=== PATIENT | female | born 1975 | race Two or more races ===

== ENCOUNTER 2016-07-03 11:43 | Emergency (ER) | payer OTHER ==
--- NOTE | 2016-07-03 12:00 | ED.ADGEN ---
Adult General Chief Complaint Chief Complaint Abdominal pain HPI HPI Patient is a 40 year old F who presents with abdominal and pelvic pain with back pain Pt is currently and approx 12 weeks and has had no care. Pt started having pain on Sunday and gradually worse. Pain is constant dull pain 6.5/10, Radiates to lower back. Pain starts bilateral lower abdomen. +N, no vomiting, no diarrhea. Pt states is having less frequent BM but last was yesterday, hard stool no blood. This am pt started spotting when wipe and urine turns pink in toilet from bleeding. Pt not going through any pads. Pt was supposed to have first OB appointment today but told to come to ER with symptoms Review of Systems Review of Systems Constitutional: Denies fever or chills Eyes: Denies change in visual acuity, redness, or eye pain HENT: Denies nasal congestion or sore throat Respiratory: Denies cough or shortness of breath Cardiovascular: No additional information not addressed in HPI GI: abdominal pain, nausea, no vomiting, bloody stools or diarrhea : Denies dysuria or hematuria Integument: Denies rash Neurologic: Denies headache, focal weakness or sensory changes [] Current Medications Current Medications Current Medications Medications (Trade) Dose Ordered Sig/Chinedu Start Time Stop Time Status Last Admin Dose Admin Acetaminophen (Tylenol) 1,000 mg 1X ONCE 07/03/16 14:15 07/03/16 22:15 DC 07/03/16 14:15 1,000 MG Physical Exam Physical Exam All vitals reviewed and stable Constitutional: Well developed, well nourished, no acute distress, non-toxic appearance. HENT: Normocephalic, atraumatic, bilateral external ears normal, oropharynx moist, no oral exudates, nose normal. [] Eyes: PERRL, EOMI, conjunctiva normal, no discharge. [] Neck: Normal range of motion, no tenderness, supple, no stridor. [] Cardiovascular:Heart rate regular rhythm, no murmur [] Lungs & Thorax: Bilateral breath sounds clear to auscultation [] Abdomen: Bowel sounds normal, soft, mild suprapubic tenderness to palpation Skin: Warm, dry, no erythema, no rash. Back: No tenderness, no CVA tenderness. Extremities: No tenderness, no cyanosis, no clubbing, ROM intact, no edema. Neurologic: Alert and oriented X 3, normal motor function, normal sensory function, no focal deficits noted. [] Psychologic: Affect normal, judgement normal, mood normal. [] Current Patient Data Vital Signs Vital Signs Date Time Temp Pulse Resp B/P (MAP) Pulse Ox O2 Delivery O2 Flow Rate FiO2 07/03/16 11:43 98.1 67 18 96 Room Air Lab Results Laboratory Tests Test 07/03/16 12:25 White Blood Count 10.6 x10^3/uL (4.0-11.0) Red Blood Count 4.18 x10^6/uL (3.50-5.40) Hemoglobin 13.6 g/dL (12.0-15.5) Hematocrit 39.7 % (36.0-47.0) Mean Corpuscular Volume 95 fL (79-100) Mean Corpuscular Hemoglobin 33 pg (25-35) Mean Corpuscular Hemoglobin Concent 34 g/dL (31-37) Red Cell Distribution Width 12.8 % (11.5-14.5) Platelet Count 238 x10^3/uL (140-400) Neutrophils (%) (Auto) 68 % (31-73) Lymphocytes (%) (Auto) 24 % (24-48) Monocytes (%) (Auto) 5 % (0-9) Eosinophils (%) (Auto) 2 % (0-3) Basophils (%) (Auto) 1 % (0-3) Neutrophils # (Auto) 7.3 x10^3uL (1.8-7.7) Lymphocytes # (Auto) 2.5 x10^3/uL (1.0-4.8) Monocytes # (Auto) 0.6 x10^3/uL (0.0-1.1) Eosinophils # (Auto) 0.2 x10^3/uL (0.0-0.7) Basophils # (Auto) 0.1 x10^3/uL (0.0-0.2) Urine Collection Type Unknown Urine Color Yellow Urine Clarity Clear Urine pH 6.0 Urine Specific Peak 1.020 Urine Protein Neg (NEG-TRACE) Urine Glucose (UA) Neg mg/dL (NEG) Urine Ketones (Stick) Neg mg/dL (NEG) Urine Blood Small (NEG) Urine Nitrite Neg (NEG) Urine Bilirubin Neg (NEG) Urine Urobilinogen Dipstick 0.2 mg/dL (0.2 mg/dL) Urine Leukocyte Esterase Neg (NEG) Urine RBC Occ /HPF (0-2) Urine WBC 0 /HPF (0-4) Urine Squamous Epithelial Cells Occ /LPF Urine Bacteria Few /HPF (0-FEW) Maternal Serum HCG Beta Subunit 42073 mIU/mL (0-6) H Sodium Level 137 mmol/L (136-145) Potassium Level 3.6 mmol/L (3.5-5.1) Chloride Level 103 mmol/L (98-107) Carbon Dioxide Level 24 mmol/L (21-32) Anion Gap 10 (6-14) Blood Urea Nitrogen 8 mg/dL (7-20) Creatinine 0.7 mg/dL (0.6-1.0) Estimated GFR (Cockcroft-Gault) 93.6 BUN/Creatinine Ratio 11 (6-20) Glucose Level 95 mg/dL (70-99) Calcium Level 9.0 mg/dL (8.5-10.1) Total Bilirubin 0.3 mg/dL (0.2-1.0) Aspartate Amino Transferase (AST) 12 U/L (15-37) L Alanine Aminotransferase (ALT) 21 U/L (14-59) Alkaline Phosphatase 67 U/L (46-116) Total Protein 7.6 g/dL (6.4-8.2) Albumin 3.7 g/dL (3.4-5.0) Albumin/Globulin Ratio 0.9 (1.0-1.7) L EKG EKG [] Radiology/Procedures Radiology/Procedures PATIENT: DAVIN QUINTERO ACCOUNT: [id number] : 1975 LOCATION: ER AGE: 40 SEX: F EXAM STATUS: REG ER ORD. PHYSICIAN: WOLFGANG BATISTA MD REASON: pelvic pain 12 weeks , vaginal bleeding PROCEDURE: OB > 14 WKS W/TV Indication: Vaginal bleeding. The uterus measures 9.6 x 6.0 x 7.0 cm. There is an intrauterine gestational sac containing a pole. The crown-rump length measurement is 9 mm consistent with 6 weeks 6 days gestation. heart rate was recorded at 133 bpm. No perigestational sac hemorrhage is detected. The ovaries are unremarkable. No adnexal mass or free fluid is detected. Impression: Single live IUP 6 weeks 6 days gestational age. The estimate date of confinement sonographically is 02/20/2017. DICTATED AND SIGNED BY: HUMBLE BIRMINGHAM MD DATE: 07/03/16 1305 CC: WOLFGANG BATISTA MD; DANIS HIGGINS MD ~ [] Course & Med Decision Making Course & Med Decision Making Pertinent Labs and Imaging studies reviewed. (See chart for details) Discussed with pt about ultrasound and 6 and 1/2 week IUP Pt with pain could be poss threatened miscarriage and will need follow up with OB Advised to use Tylenol for pain in back Signs and symptoms of bleeding and pain when to return to ER Final Impression Final Impression ABDOMINAL PAIN WITH FIRST TRIMESTER THREATENED MISCARRIAGE[] Problems: Dragon Disclaimer Dragon Disclaimer This electronic medical record was generated, in whole or in part, using a voice recognition dictation system. WOLFGANG BATISTA MD July 03, 2016 12:00
[2016-07-03 12:50] LABS: BASO # 0.1 x10^3/uL (0.0-0.2); BASO % 1 % (0-3); EOS # 0.2 x10^3/uL (0.0-0.7); EOS % 2 % (0-3); HEMATOCRIT 39.7 % (36.0-47.0); HEMOGLOBIN 13.6 g/dL (12.0-15.5); LYMPH # 2.5 x10^3/uL (1.0-4.8); LYMPH % 24 % (24-48); MEAN CORPUSCULAR HEMOGLOBIN 33 pg (25-35); MEAN CORPUSCULAR HGB CONC 34 g/dL (31-37); MEAN CORPUSCULAR VOLUME 95 fL (79-100); MONO # 0.6 x10^3/uL (0.0-1.1); MONO % 5 % (0-9); NEUT # 7.3 x10^3uL (1.8-7.7); NEUT % 68 % (31-73); PLATELET COUNT 238 x10^3/uL (140-400); RED BLOOD COUNT 4.18 x10^6/uL (3.50-5.40); RED CELL DISTRIBUTION WIDTH 12.8 % (11.5-14.5); WHITE BLOOD COUNT 10.6 x10^3/uL (4.0-11.0)
[2016-07-03 12:56] LABS: ALBUMIN 3.7 g/dL (3.4-5.0); ALBUMIN/GLOBULIN RATIO 0.9 (1.0-1.7); CREATININE 0.7 mg/dL (0.6-1.0); GFR 93.6; POTASSIUM 3.6 mmol/L (3.5-5.1); TOTAL BILIRUBIN 0.3 mg/dL (0.2-1.0); TOTAL PROTEIN 7.6 g/dL (6.4-8.2)
[2016-07-03 13:05] LABS: BACTERIA,URINE FEW /HPF (0-FEW); BILIRUBIN,URINE NEG (NEG); CLARITY,URINE CLEAR; COLOR,URINE YELLOW; GLUCOSE,URINE NEG (NEG); NITRITE,URINE NEG (NEG); RBC,URINE OCC /HPF (0-2); SQUAMOUS EPITHELIAL CELL,UR OCC /LPF; UROBILINOGEN,URINE 0.2 mg/dL (0.2 mg/dL); WBC,URINE 0 /HPF (0-4)
--- NOTE | 2016-07-03 13:06 | RAD ---
Indication: Vaginal bleeding. The uterus measures 9.6 x 6.0 x 7.0 cm. There is an intrauterine gestational sac containing a pole. The crown-rump length measurement is 9 mm consistent with 6 weeks 6 days gestation. heart rate was recorded at 133 bpm. No perigestational sac hemorrhage is detected. The ovaries are unremarkable. No adnexal mass or free fluid is detected. Impression: Single live IUP 6 weeks 6 days gestational age. The estimate date of confinement sonographically is 02/20/2017.
[2016-07-03] MEDS ORDERED: ACETAMINOPHEN 500 MG TABLET PO ONE (14:15)
[2016-07-03 14:20] VITALS: BP 112/60
== END 2016-07-03 14:20 | disposition home or self-care (01) ==
LOC: ER 11:43
DX: O20.0 Threatened abortion (principal); R10.2 Pelvic and perineal pain; Z3A.01 Less than 8 weeks gestation of pregnancy
CPT/HCPCS: 36415; 76805; 76817; 80053; 81001; 84702; 85027; 86901; 99285-25